=== PATIENT | male | born 1980 | race Caucasian/White ===

== ENCOUNTER 2022-06-22 15:47 | Emergency (ER) | payer MEDICAID ==
[~2022-06-22] VITALS: Ht 162.6 cm; Wt 69.9 kg
[2022-06-22 15:55] VITALS: BP 146/98
--- NOTE | 2022-06-22 16:10 | NUR ---
41 y/o male bib self with c/o laceration to left third digit x today. Patient states he was cutting cilantro for his soup when he sliced his third digit. Third digit is actively bleeding. Pressure applied. Patient is able to move fingers, has good color but reports numbness to hand. Last Tetanus vaccine is unknown Medical History: Denies NKDA
[2022-06-22] MEDS ORDERED: BACITRACIN OINT 500 UNITS/GM PKT TP ONE (16:55)
[2022-06-22] MEDS ORDERED: LIDOCAINE MPF 1% 10 MG/ML VIAL INJ ONE (16:55)
--- NOTE | 2022-06-22 17:39 | NUR ---
ESCOBAR Jimenez performing procedure at bedside.
[2022-06-22] MEDS ORDERED: IBUP-1842 PO (18:09)
[2022-06-22] MEDS ORDERED: BACI28.43 TP (18:09)
[2022-06-22 18:52] VITALS: BP 125/73
--- NOTE | 2022-06-22 18:52 | NUR ---
Patient discharged with v/s stable. Written and verbal after care instructions given. Patient alert, oriented and verbalized understanding of instructions. Ambulatory with steady gait. All questions addressed prior to discharge. ID band removed. Patient advised to follow up with PMD. Rx of Bacitracin Zinc nd Ibuprofen given. Opportunity to ask questions provided and answered. WORK NOTE HANDED TO PATIENT.
--- NOTE | 2022-06-22 18:53 | NUR ---
The patient's care was reviewed and supervised by Missy Carter RN.
== END 2022-06-22 18:52 | disposition home or self-care (01) ==
LOC: MED 15:47
DX: S61.213A Laceration without foreign body of left middle finger without damage to nail, initial encounter (principal); Z79.899 Other long term (current) drug therapy; W45.8XXA Other foreign body or object entering through skin, initial encounter; Y93.G3 Activity, cooking and baking; Y92.89 Other specified places as the place of occurrence of the external cause; Y99.8 Other external cause status
CPT/HCPCS: 12002; 90471; 90715; 99283; J2001

== ENCOUNTER 2022-07-01 17:23 | Emergency (ER) | payer MEDICAID ==
[~2022-07-01] VITALS: Ht 162.8 cm; Wt 67.1 kg
[~2022-07-01 17:23] MED LIST: BACI28.43 TP; IBUP-1842 PO
[2022-07-01 17:40] VITALS: BP 144/90
--- NOTE | 2022-07-01 18:00 | NUR ---
ASSUMED PATIENT CARE, NURSING ASSESSMENT COMPLETED.
[2022-07-01 18:19] VITALS: BP 110/66
--- NOTE | 2022-07-01 18:20 | NUR ---
DISPO AND MEDICAL DECISION MAKING, DC HOME WITH AFTERCARE INSTRUCTIONS. ADVISED TO RETURN IN THREE DAYS, UNDERSTOOD BY PATIENT WELL.
== END 2022-07-01 18:20 | disposition home or self-care (01) ==
LOC: MED 17:23
DX: S69.92XD Unspecified injury of left wrist, hand and finger(s), subsequent encounter (principal); R03.0 Elevated blood-pressure reading, without diagnosis of hypertension; Z48.02 Encounter for removal of sutures; X58.XXXD Exposure to other specified factors, subsequent encounter
CPT/HCPCS: 99281